=== PATIENT | female | born 1975 | race Caucasian/White ===

== ENCOUNTER 2020-09-04 08:35 | Emergency (ER) | payer SELFPAY ==
[~2020-09-04] VITALS: Ht 160 cm; Wt 59.0 kg
--- NOTE | 2020-09-04 08:44 | NUR ---
came in for dysuria, burning sensation when urinating and foul smelly urine X 1day. to ER 10, hooked to monitor, VSS. Dr Rodríguez at bedside
[2020-09-04 09:11] LABS: APPEARANCE,URINE Turbid (CLEAR); BILIRUBIN,URINE Negative (NEGATIVE); BLOOD, URINE Small Ery/uL (NEGATIVE); COLOR,URINE Yellow (YELLOW); KETONES,URINE Negative (NEGATIVE); LEUKOCYTE ESTERASE ,URINE Small (NEGATIVE); NITRITE, URINE Positive (NEGATIVE); PROTEIN,URINE 30 mg/dl (NEGATIVE); UGLUCOSE Negative (NEGATIVE); UROBILINOGEN,URINE 0.2 EU/dL (0.2)
[2020-09-04 09:19] LABS: BACTERIA,URINE Many /HPF (None Seen); SQUAMOUS EPITHELIAL CELL,UR Few /HPF (None Seen); WBC,URINE TOO NUMEROUS TO COUN /HPF (0-3)
--- NOTE | 2020-09-04 09:28 | NUR ---
Patient discharged to home in stable condition. Written and verbal after care instructions given. Patient verbalizes understanding of instruction.
[2020-09-04 09:29] VITALS: BP 106/74
== END 2020-09-04 09:29 | disposition home or self-care (01) ==
LOC: ER 08:37
DX: N39.0 Urinary tract infection, site not specified (principal)
CPT/HCPCS: 81000-TC; 87086-TC; 87186-TC